=== PATIENT | male | born 1970 | race African-American/Black ===

== ENCOUNTER 2017-02-08 14:22 | Emergency (ER) | payer MEDICAID ==
[~2017-02-08] VITALS: Ht 188 cm; Wt 77.0 kg
[2017-02-08 18:24] LABS: CLARITY URINE CLEAR (CLEAR); COLOR URINE YELLOW (YELLOW); GLUCOSE URINE NEGATIVE (NEGATIVE); KETONES URINE NEGATIVE (NEGATIVE); LEUKOCYTE ESTERASE URINE 2+ (NEGATIVE); NITRITE URINE NEGATIVE (NEGATIVE); OCCULT BLOOD URINE 1+ (NEGATIVE); PROTEIN URINE 1+ (NEGATIVE); SPECIFIC GRAVITY URINE 1.017 (1.005-1.030)
[2017-02-08] MEDS ORDERED: CEFTRIAXONE SODIUM 250 MG/VIAL IM ONE (19:30)
[2017-02-08 20:10] VITALS: BP 118/78
[2017-02-11 04:17] LABS: CHLAMYDIA TRACHOMATIS NAA Positive (Negative); NEISSERIA GONORRHOEAE NAA Negative (Negative)
== END 2017-02-08 20:10 | disposition home or self-care (01) ==
LOC: ER 14:22
DX: N45.3 Epididymo-orchitis (principal); F17.200 Nicotine dependence, unspecified, uncomplicated; F12.10 Cannabis abuse, uncomplicated
CPT/HCPCS: 76870; 81001; 87491; 87591; 93976; 96372; 99285; J0696; Z7610

== ENCOUNTER 2018-05-04 15:50 | Emergency (ER) | payer SELFPAY ==
[~2018-05-04] VITALS: Ht 185.4 cm; Wt 77.0 kg
[2018-05-04 15:59] VITALS: BP 130/81
[2018-05-04 20:21] LABS: CLARITY URINE CLOUDY (CLEAR); COLOR URINE YELLOW (YELLOW); KETONES URINE NEGATIVE (NEGATIVE); LEUKOCYTE ESTERASE URINE 1+ (NEGATIVE); NITRITE URINE NEGATIVE (NEGATIVE); OCCULT BLOOD URINE NEGATIVE (NEGATIVE); PH URINE 6.5 (4.5-8.0); PROTEIN URINE NEGATIVE (NEGATIVE); SPECIFIC GRAVITY URINE 1.005 (1.005-1.030); UROBILINOGEN URINE 0.2 E.U./dL (0.2-1.0)
[2018-05-04] MEDS ORDERED: CEFTRIAXONE SODIUM 250 MG/VIAL IM ONE (20:45)
[2018-05-04] MEDS ORDERED: AZITHROMYCIN 500 MG TABLET PO ONE (20:45)
== END 2018-05-04 22:00 | disposition home or self-care (01) ==
LOC: ER 19:02
DX: R30.0 Dysuria (principal); Z11.3 Encounter for screening for infections with a predominantly sexual mode of transmission; F12.10 Cannabis abuse, uncomplicated; Z90.49 Acquired absence of other specified parts of digestive tract
CPT/HCPCS: 81003; 96372; 99283; J0696